=== PATIENT | male | born 1950 | race Caucasian/White ===

== ENCOUNTER 2018-06-07 06:32 | Day surgery (SDC) | payer MEDICARE, BC ==
[2018-05-30 10:54] LABS: HEMATOCRIT 40.7 % (37.9-51.0); HEMOGLOBIN 14.3 g/dL (13.5-17.0); MEAN CORPUSCULAR HEMOGLOBIN 31.7 pg (27.0-33.4); MEAN CORPUSCULAR VOLUME 90 fl (80-97); PLATELET COUNT 139 10^3/uL (150-450); WHITE BLOOD COUNT 5.1 10^3/uL (4.0-10.5)
[~2018-06-07 06:32] MED LIST: ACETAMINOPHEN 325 MG TABLET PO PRN; LACTATED RINGERS 1000 ML IV PRN; LIDOCAINE 0.5% INJ-PF (5 MG/ML) 50 ML SDV SUBCUT PRN
[2018-06-07] MEDS ORDERED: PROPOFOL INJ 200 MG/20 ML VIAL IV ONE (06:49)
[2018-06-07] MEDS ORDERED: FENTANYL CITRATE INJ/PF 100 MCG/2 ML AMPUL IV PRN ×3 (08:13)
[2018-06-07] MEDS ORDERED: ONDANSETRON HCL INJ/PF 4 MG/2 ML SDV IV PRN (08:13)
[2018-06-07] MEDS ORDERED: MEPERIDINE HCL/PF INJ 25 MG/1 ML DISP.SYRIN IV PRN (08:13)
[2018-06-07] MEDS ORDERED: PROMETHAZINE HCL INJ 25 MG/1 ML VIAL IV PRN (08:13)
[2018-06-07] MEDS ORDERED: DIPHENHYDRAMINE HCL 50 MG/ML VIAL IV PRN (08:13)
--- NOTE | 2018-06-07 08:47 | Discharge Summary ---
Discharge Summary (SDC) - Discharge Final Diagnosis: colon polyps, diverticulosis Date of Surgery: 06/07/18 Discharge Date: 06/07/18 Condition: Stable Referrals: KRISTA SHIELDS MD [Primary Care Provider] - Discharge Diet: As Tolerated Respiratory Treatments at Home: Deep Breathing/Coughing, Incentive Spirometer Discharge Activity: Activity As Tolerated, Balance Activity w/Rest Home Care Assistance: None Needed Report the Following to Your Physician Immediately: Shortness of Breath, Nausea , Vomiting, Fever over 101 Degrees, Unusual Bleeding, Redness, Swelling, Warmth
--- NOTE | 2018-06-07 08:54 | Operative Report ---
Nonrecallable Operative Report DATE OF SURGERY: 06/07/18 PREOPERATIVE DIAGNOSIS: Positive colo-guard test POSTOPERATIVE DIAGNOSIS: 1. Multiple colon polyps, one large polyp found in the distal sigmoid colon. 2. Scattered diverticulosis. OPERATION: 1. Colonoscopy to the cecum. 2. Snare polypectomy of multiple colon polyps. SURGEON: PATSY BLACKMAN ANESTHESIA: LMAC TISSUE REMOVED OR ALTERED: 1. Ascending colon polyp. 2. Hepatic flexure colon polyp. 3. Large colon polyp at 20 cm. 4. Extra margin of large colon polyp at 20 cm. 5. Colon polyp at 15 cm. COMPLICATIONS: None apparent ESTIMATED BLOOD LOSS: Minimal PROCEDURE: Drains/implants: None. Procedure in detail: After informed consent was obtained, the patient was brought to the operating room and laid in the left lateral decubitus position. The endoscope was passed up the rectum, sigmoid colon, descending colon, across the transverse colon, down the ascending colon, and into the cecum. The ileocecal valve and appendiceal orifice were identified. The scope was withdrawn, circumferentially noting the mucosa. The prep was very good. The scope was withdrawn past the ascending colon. In the ascending colon a small polyp was identified. This was removed via snare polypectomy. The scope was withdrawn up into the hepatic flexure, where another small polyp was removed via snare polypectomy. The scope was withdrawn past the transverse colon and down the descending colon. In sigmoid colon, at approximately 20 cm, a very large polyp was identified. This was removed via snare polypectomy. After resection there was a small stalk remaining. The remainder of the stalk was removed via snare polypectomy as well. This provided an extra margin of resection for the large polyp. There were also small, scattered diverticula throughout the sigmoid colon. The scope was then withdrawn down toward the rectum. At approximately 15 cm, at the rectosigmoid junction, another small polyp was removed. Scope was withdrawn into the rectum. A retroflexion maneuver was performed, where large internal hemorrhoids were identified. The scope was then straightened, air was suctioned from the rectum, the scope was removed, and the procedure was concluded. All sponge, instrument, and needle counts were correct. Condition: Stable.
[2018-06-07 09:46] VITALS: BP 132/70
== END 2018-06-07 09:49 | disposition home or self-care (01) ==
LOC: OROUT 06:32
PROVIDERS: ATTEND Surgery
DX: Z12.11 Encounter for screening for malignant neoplasm of colon (principal); K57.30 Diverticulosis of large intestine without perforation or abscess without bleeding; D12.2 Benign neoplasm of ascending colon; D12.6 Benign neoplasm of colon, unspecified; K63.5 Polyp of colon; C90.00 Multiple myeloma not having achieved remission; N40.0 Benign prostatic hyperplasia without lower urinary tract symptoms; D69.1 Qualitative platelet defects; K40.20 Bilateral inguinal hernia, without obstruction or gangrene, not specified as recurrent
CPT/HCPCS: 45380; 45385; 36415 ×2; 84132; 85027; 88305 ×2; J2704; 811

== ENCOUNTER → 2018-10-12 | Outpatient (CLI) | payer MEDICARE, BC ==
--- NOTE | 2018-10-12 15:50 | RADIOLOGY REPORT (SQ) ---
EXAM DESCRIPTION: BONE SURVEY COMPLETE COMPLETED DATE/TIME: 10/12/2018 3:36 pm REASON FOR STUDY: D47.2 MONOCLONAL GAMMOPATHY D47.2 MONOCLONAL GAMMOPATHY COMPARISON: None. TECHNIQUE: Images of the axial and proximal appendicular skeleton are obtained, along with lateral s kull and frontal chest films. LIMITATIONS: None. FINDINGS: AP CHEST: No bony findings. Lungs are clear. LATERAL SKULL: No worrisome bone lesions. AP BOTH HUMERI: No worrisome bone lesions. Soft tissue calcification the left forearm. Likely vascu lar t.e TWO-VIEW LUMBAR SPINE: No worrisome bone lesions. Right nephrolithiasis. TWO-VIEW THORACIC SPINE: No worrisome bone lesions. AP PELVIS: No worrisome bone lesions. AP BOTH FEMURS: No worrisome bone lesions. OTHER: Images of the bilateral tibia and fibulas without findings. Lateral cervical spine degenerati ve changes. IMPRESSION: NO WORRISOME BONE LESIONS. Right nephrolithiasis. TECHNICAL DOCUMENTATION: JOB ID: [id number] [employer]- All Rights Reserved Reading location - IP/workstation name: [email or web address]
== END ==
LOC: RAD 15:50
PROVIDERS: ATTEND Internal Medicine Medical Oncology
DX: D47.2 Monoclonal gammopathy (principal)
CPT/HCPCS: 77075

== ENCOUNTER 2018-10-24 05:28 | Day surgery (SDC) | payer MEDICARE, BC ==
--- NOTE | 2018-10-22 10:18 | RADIOLOGY REPORT (SQ) ---
EXAM DESCRIPTION: CHEST PA/LATERAL COMPLETED DATE/TIME: 10/22/2018 9:50 am REASON FOR STUDY: PRE-OP COMPARISON: None. EXAM PARAMETERS: NUMBER OF VIEWS: two views TECHNIQUE: Digital Frontal and Lateral radiographic views of the chest acquired. RADIATION DOSE: NA LIMITATIONS: none FINDINGS: LUNGS AND PLEURA: No opacities, masses or pneumothorax. No pleural effusion. MEDIASTINUM AND HILAR STRUCTURES: No masses or contour abnormalities. HEART AND VASCULAR STRUCTURES: Heart normal size. No evidence for failure. BONES: No acute findings. HARDWARE: None in the chest. OTHER: No other significant finding. IMPRESSION: NO SIGNIFICANT RADIOGRAPHIC FINDING IN THE CHEST. TECHNICAL DOCUMENTATION: JOB ID: [id number] [employer]- All Rights Reserved Reading location - IP/workstation name: [email or web address]
[2018-10-22 10:52] LABS: HEMATOCRIT 47.2 % (37.9-51.0); HEMOGLOBIN 16.2 g/dL (13.5-17.0); MEAN CORPUSCULAR HEMOGLOBIN 30.6 pg (27.0-33.4); MEAN CORPUSCULAR HGB CONC 34.3 g/dL (32.0-36.0); MEAN CORPUSCULAR VOLUME 89 fl (80-97); PLATELET COUNT 152 10^3/uL (150-450); WHITE BLOOD COUNT 5.4 10^3/uL (4.0-10.5)
[2018-10-22 11:24] LABS: ANION GAP 14 (5-19); BLOOD UREA NITROGEN 15 mg/dL (7-20); CALCIUM 9.7 mg/dL (8.4-10.2); CARBON DIOXIDE 29 mmol/L (22-30); CHLORIDE 102 mmol/L (98-107); GLUCOSE 105 mg/dL (75-110); POTASSIUM 4.1 mmol/L (3.6-5.0); SODIUM 144.9 mmol/L (137-145)
--- NOTE | 2018-10-22 23:22 | EKG REPORT ---
SEVERITY:- NORMAL ECG - SINUS RHYTHM : Confirmed by: Iliana Potts MD 22-Oct-2018 23:22:12
[~2018-10-24 05:28] MED LIST changes: -ACETAMINOPHEN 325 MG TABLET PO PRN; +CEFAZOLIN 2 GM/D5W RTU 2 GM/50 ML RTUPB IV ONE; +CEFAZOLIN 2 GM/D5W RTU 2 GM/50 ML RTUPB IV PRN; +IBUPROFEN 800 MG in NORMAL SALINE 250 ML IV PRN
[2018-10-24] MEDS ORDERED: FENTANYL CITRATE INJ/PF 100 MCG/2 ML AMPUL ONE (06:48)
[2018-10-24] MEDS ORDERED: EPHEDRINE SULFATE INJ 50 MG/1 ML AMPULE ONE (06:48)
[2018-10-24] MEDS ORDERED: LIDOCAINE 2% INJ-PF (100 MG/5 ML) SYRINGE ONE (06:48)
[2018-10-24] MEDS ORDERED: PROMETHAZINE HCL INJ 25 MG/1 ML VIAL ONE (06:48)
[2018-10-24] MEDS ORDERED: MIDAZOLAM 2 MG/2 ML INJ ONE (06:48)
[2018-10-24] MEDS ORDERED: DEXAMETHASONE SOD PHOSPHATE INJ 4 MG/1 ML VIAL ONE (06:49)
[2018-10-24] MEDS ORDERED: PROPOFOL INJ 200 MG/20 ML VIAL IV ONE (06:49)
[2018-10-24] MEDS ORDERED: ACETAMINOPHEN 1,000 MG/100 ML RTUPB IV ONE (06:49)
[2018-10-24] MEDS ORDERED: ONDANSETRON HCL INJ/PF 4 MG/2 ML SDV ONE (06:49)
[2018-10-24] MEDS ORDERED: BUPIVACAINE HCL 0.25 % INJ/PF (2.5 MG/1 ML) 30 ML VIAL ONE (06:49)
[2018-10-24] MEDS ORDERED: HYDROMORPHONE HCL INJ/PF 2 MG/ML AMPULE ONE (07:09)
[2018-10-24] MEDS ORDERED: MORPHINE SULFATE 10 MG/ML INJ IV PRN (08:02)
[2018-10-24] MEDS ORDERED: MEPERIDINE HCL/PF INJ 25 MG/1 ML DISP.SYRIN IV PRN (08:02)
[2018-10-24] MEDS ORDERED: PROMETHAZINE HCL INJ 25 MG/1 ML VIAL IV PRN ×2 (08:02)
[2018-10-24] MEDS ORDERED: DIPHENHYDRAMINE HCL 50 MG/ML VIAL IV PRN (08:02)
[2018-10-24] MEDS ORDERED: FENTANYL CITRATE INJ/PF 100 MCG/2 ML AMPUL IV PRN ×3 (08:02)
[2018-10-24] MEDS ORDERED: SUCCINYLCHOLINE CHLORIDE INJ 200 MG/10 ML VIAL ONE (09:29)
[2018-10-24] MEDS ORDERED: ROCURONIUM BROMIDE INJ 50 MG/5 ML VIAL IV ONE (09:29)
[2018-10-24] MEDS ORDERED: GLYCOPYRROLATE 1 MG/5 ML SYRINGE ONE (09:29)
[2018-10-24] MEDS ORDERED: KETOROLAC TROMETHAMINE 60 MG/2 ML SDV ONE (09:29)
[2018-10-24] MEDS ORDERED: NEOSTIGMINE METHYLSULFATE 10 MG/10 ML VIAL ONE (09:29)
[2018-10-24 11:45] VITALS: BP 157/86
--- NOTE | 2018-10-24 16:23 | Discharge Summary ---
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 Date of Surgery: 10/24/18 Discharge Date: 10/24/18 Forms: ASU Anesthesia D/C Instruction, Discharge POC-Surgical Service Treatment or Instructions: Discharge home. Diet as tolerated. Activity: No lifting greater than 10 pounds x 2 weeks. Follow-up with me in 7-10 days. [place] 10/325 mg p.o. every 6 hours as needed for pain. Okay to shower in 48 hours. No tub baths or swimming pools times 2 weeks. Referrals: PATSY BLACKMAN MD [ACTIVE STAFF] - 10/30/18 3:15 pm Discharge Diet: As Tolerated Respiratory Treatments at Home: Deep Breathing/Coughing, Incentive Spirometer Discharge Activity: Balance Activity w/Rest, No Lifting Over 10 Pounds Home Care Assistance: None Needed Report the Following to Your Physician Immediately: Nausea, Vomiting, Increase in Pain, Fever over 101 Degrees, Unusual Bleeding, Redness, Swelling, Warmth, Drainage-Foul Smelling, IV Site Infection Signs
--- NOTE | 2018-10-24 16:29 | Operative Report ---
Nonrecallable Operative Report DATE OF SURGERY: 10/24/18 PREOPERATIVE DIAGNOSIS: Inguinal hernia POSTOPERATIVE DIAGNOSIS: Intraperitoneal seeding of unknown carcinoma. OPERATION: Exploratory laparoscopy with multiple peritoneal biopsies. SURGEON: PATSY HENDRICKS MECHANICAL DESIGN TECHNICIAN: LINDA FLORES ANESTHESIA: GA TISSUE REMOVED OR ALTERED: Multiple peritoneal biopsies COMPLICATIONS: Unable to perform laparoscopic inguinal hernia repair due to diffuse intraperitoneal seeding from an unknown carcinoma. ESTIMATED BLOOD LOSS: Minimal PROCEDURE: Drains/implants: None. Procedure in detail: After informed consent was obtained, the patient was brought to the operating room and laid in the supine position. The area of the abdomen was prepped and draped in a normal sterile fashion. A supraumbilical incision was created with a 15 blade scalpel. Dissection was carried down to the linea alba fascia sharply. The abdomen was entered sharply. The balloon trocar was inserted, and pneumoperitoneum was achieved. Next 2 right and left lateral 8 mm robotic trochars were placed into the abdomin al wall. The patient had bilateral inguinal hernias that were visualized. Upon survey of the abdomen, multiple small peritoneal implants were noted. They had a suspicious appearance. Biopsy was then performed using a 5 mm scoop biopsy forcep. Several of these peritoneal implants were sent to pathology for frozen section. Frozen section confirms that there is an unknown carcinoma seeding the peritoneal cavity. In light of this, it was felt risky and improper to proceed with hernia surgery. The patient will require further workup for his intraperitoneal tumor spread. The trochars were removed and pneumoperitoneum was relieved. The supraumbilical fascia was closed using 0 Vicryl suture in [id number] fashion. The overlying skin was closed using 4-0 Vicryl Rapide suture in subcuticular fashion. All sponge, instrument, needle counts were correct x2. Condition: Fair. Linda Flores PA-C was scrubbed and present the entirety of the procedure. She assisted with all portions of the procedure including opening of the abdomen, performing the biopsy, closure of the fascia, and closure of the skin.
== END 2018-10-24 11:45 | disposition home or self-care (01) ==
LOC: OROUT 05:28
PROVIDERS: ATTEND Surgery
DX: C48.2 Malignant neoplasm of peritoneum, unspecified (principal); K40.20 Bilateral inguinal hernia, without obstruction or gangrene, not specified as recurrent
CPT/HCPCS: 49321; S2900; 36415; 71046; 790; 80048; 85027; 86850; 86900; 86901; 88305; 88331; 88341; 88342; 93005; 93010; J0131; J0330; J0690; J1100; J1170; J1741; J1885; J2001; J2250; J2405; J2550; J2704; J3010; J3490; J7050

== ENCOUNTER → 2018-10-29 | Outpatient (CLI) | payer MEDICARE, BC ==
[2018-10-29 17:31] LABS: CARCINOEMBRYONIC ANTIGEN 1.5 ng/mL (<3.0); PROSTATE SPECIFIC ANTIGEN 3.22 ng/mL (<4.00)
== END ==
LOC: OD 14:24
PROVIDERS: ATTEND Surgery
DX: C48.2 Malignant neoplasm of peritoneum, unspecified (principal); N40.0 Benign prostatic hyperplasia without lower urinary tract symptoms; R97.0 Elevated carcinoembryonic antigen [CEA]; D37.8 Neoplasm of uncertain behavior of other specified digestive organs
CPT/HCPCS: 36415; 82378; 84153; 86301; 86304

== ENCOUNTER → 2018-10-31 | Outpatient (CLI) | payer MEDICARE, BC ==
--- NOTE | 2018-10-31 14:28 | RADIOLOGY REPORT (SQ) ---
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 TECHNIQUE: CT scan of the chest performed using helical scanning technique with dynamic intravenous contrast injection. Images reviewed with lung, soft tissue and bone windows. Reconstructed coronal and sagittal MPR and MIP images reviewed. All images stored on PACS. All CT scanners at this facility use dose modulation, iterative reconstruction, and/or weight based d osing when appropriate to reduce radiation dose to as low as reasonably achievable (ALARA). [facility]: Dose Right [facility]: CareDose [facility]: Dose Right [facility]: Teradose 4D [facility]: [employer] CONTRAST TYPE AND DOSE: See separate report of the same date. RENAL FUNCTION: See separate report of the same date. RADIATION DOSE: . LIMITATIONS: None. FINDINGS: LUNGS AND PLEURA: 10 mm ground-glass opacity in the middle lobe. No solid nodules. No ef fusions. HILAR AND MEDIASTINAL STRUCTURES: No identified masses or abnormal nodes. Gastroesophageal reflux. HEART AND VASCULAR STRUCTURES: No aneurysm or dissection. No central pulmonary emboli. No pericardi al effusion. HARDWARE: None in the chest. UPPER ABDOMEN: See separate report of the CT of the abdomen. THYROID AND OTHER SOFT TISSUES: No masses. No adenopathy. BONES: Nothing acute. OTHER: No other significant finding. IMPRESSION: 10 mm ground-glass nodule in the middle lobe. Gastroesophageal reflux. TECHNICAL DOCUMENTATION: JOB ID: [id number] Quality ID # [id number]: Final reports with documentation of one or more dose reduction techniques (e.g., Au tomated exposure control, adjustment of the mA and/or kV according to patient size, use of iterative reconstruction technique) 2010 [employer]- All Rights Reserved Reading location - IP/workstation name: [email or web address]
--- NOTE | 2018-10-31 14:40 | RADIOLOGY REPORT (SQ) ---
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 TECHNIQUE: CT scan of the abdomen and pelvis performed with intravenous and oral contrast using veronique karla scanning technique with dynamic intravenous contrast injection. Images reviewed with lung, soft t issue, and bone windows. Reconstructed coronal and sagittal MPR images reviewed. Delayed images for e valuation of the urinary system also acquired. All images stored on PACS. All CT scanners at this facility use dose modulation, iterative reconstruction, and/or weight based d osing when appropriate to reduce radiation dose to as low as reasonably achievable (ALARA). [facility]: Dose Right [facility]: CareDose [facility]: Dose Right [facility]: Teradose 4D [facility]: [employer] CONTRAST TYPE AND DOSE: contrast/concentration: Isovue 350.00 mg/ml; Total Contrast Delivered: 71.0 ml; Total Saline Delivered: 66.0 ml RENAL FUNCTION: GFR > 60. RADIATION DOSE: CT Rad equipment meets quality standard of care and radiation dose reduction techniq ues were employed. CTDIvol: 5.3 - 5.7 mGy. DLP: 751 mGy-cm. . LIMITATIONS: None. FINDINGS: LOWER CHEST: See separate report of the CT of the chest. LIVER: Normal size. No masses. No dilated ducts. SPLEEN: Normal size. No focal lesions. PANCREAS: No masses. No significant calcifications. No adjacent inflammation or peripancreatic fluid collections. Pancreatic duct not dilated. GALLBLADDER: Surgically absent. ADRENAL GLANDS: No significant masses or asymmetry. RIGHT KIDNEY AND URETER: Several small cortical cysts. Anterior interpolar cortical lesion measuring approximately 1 cm and 38 HU, best seen on series 605, image 22 and axial image 35. 7 mm calculus lower pole. No hydronephrosis or hydroureter. LEFT KIDNEY AND URETER: No solid masses. 2 renal calculi, the largest about 4 mm. No hydronephros is or hydroureter. AORTA AND VESSELS: No aneurysm. No dissection. Renal arteries, SMA, celiac without stenosis. RETROPERITONEUM: No retroperitoneal adenopathy, hemorrhage or masses. BOWEL AND PERITONEAL CAVITY: Pneumoperitoneum status post recent laparoscopy. No adenopathy. No asc ites. APPENDIX: Not visualized. PELVIS: Symmetric enlarged prostate. Dependent linear calcified density urinary bladder may be in th e bladder wall or lumen. 2 x 12 mm. ABDOMINAL WALL: Left inguinal hernia containing nondilated sigmoid colon. BONES: Nothing acute. OTHER: No other significant finding. IMPRESSION: 1. Small potential solid lesion right kidney. Bladder calculi versus calcifications in the bladder w all. Consider urology consultation. 2. Nonobstructing renal calculi. 3. Left inguinal hernia containing nondilated sigmoid colon. TECHNICAL DOCUMENTATION: JOB ID: [id number] Quality ID # [id number]: Final reports with documentation of one or more dose reduction techniques (e.g., Au tomated exposure control, adjustment of the mA and/or kV according to patient size, use of iterative reconstruction technique) 2010 [employer]- All Rights Reserved Reading location - IP/workstation name: [email or web address]
== END ==
LOC: RAD 15:02
PROVIDERS: ATTEND Surgery
DX: C90.00 Multiple myeloma not having achieved remission (principal); K22.0 Achalasia of cardia; R10.9 Unspecified abdominal pain
CPT/HCPCS: 71260; 74177